=== PATIENT | male | born 1975 | race Native Hawaiian/Other Pacific Islander ===

== ENCOUNTER 2017-12-06 15:56 | Emergency (ER) | payer OTHER ==
[~2017-12-06] VITALS: Ht 180.3 cm; Wt 86.2 kg
[2017-12-06 16:20] VITALS: TEMP 98.1
[2017-12-06 17:48] VITALS: BP 140/87
== END 2017-12-06 17:49 | disposition home or self-care (01) ==
LOC: ED 15:56
DX: S16.1XXA Strain of muscle, fascia and tendon at neck level, initial encounter (principal); S20.222A Contusion of left back wall of thorax, initial encounter; S20.221A Contusion of right back wall of thorax, initial encounter; S30.0XXA Contusion of lower back and pelvis, initial encounter; M47.892 Other spondylosis, cervical region; V89.2XXA Person injured in unspecified motor-vehicle accident, traffic, initial encounter
CPT/HCPCS: 96372; 99283; J1885; J2360

== ENCOUNTER 2018-01-29 14:30 | Emergency (ER) | payer OTHER ==
[~2018-01-29] VITALS: Ht 180.3 cm; Wt 93.0 kg
[2018-01-29 15:11] LABS: PLATELET COUNT 271 K/uL (142-355)
[2018-01-29 15:55] VITALS: BP 112/62; TEMP 97.8
== END 2018-01-29 15:55 ==
LOC: ED 14:30
PROVIDERS: Family Medicine
DX: R07.89 Other chest pain (principal); R06.02 Shortness of breath
CPT/HCPCS: 36415; 80053; 84484; 85027; 85379; 93005; 99283

== ENCOUNTER 2018-07-29 15:52 | Emergency (ER) | payer OTHER ==
[~2018-07-29] VITALS: Ht 180.3 cm; Wt 97.5 kg
[2018-07-29 16:00] VITALS: TEMP 98.1
[2018-07-29 17:40] VITALS: BP 112/68
== END 2018-07-29 17:40 | disposition home or self-care (01) ==
LOC: ED 15:52
DX: S60.221A Contusion of right hand, initial encounter (principal); W22.8XXA Striking against or struck by other objects, initial encounter; Y93.89 Activity, other specified; Y92.89 Other specified places as the place of occurrence of the external cause; Y99.8 Other external cause status
CPT/HCPCS: 99282

== ENCOUNTER 2019-11-26 13:55 | Emergency (ER) | payer OTHER ==
[~2019-11-26] VITALS: Ht 180.3 cm; Wt 97.5 kg
[2019-11-26 14:06] VITALS: TEMP 98.8
[2019-11-26 14:41] VITALS: BP 128/88
== END 2019-11-26 14:42 | disposition home or self-care (01) ==
LOC: ED 13:55
DX: T20.12XA Burn of first degree of lip(s), initial encounter (principal); T22.10XA Burn of first degree of shoulder and upper limb, except wrist and hand, unspecified site, initial encounter; B00.9 Herpesviral infection, unspecified
CPT/HCPCS: 99282

== ENCOUNTER 2020-07-23 19:48 | Emergency (ER) | payer OTHER ==
[~2020-07-23] VITALS: Ht 180.3 cm; Wt 99.8 kg
[2020-07-23 20:10] VITALS: BP 128/85; TEMP 98.3
== END 2020-07-23 21:48 | disposition home or self-care (01) ==
LOC: ED 19:48
DX: S69.81XA Other specified injuries of right wrist, hand and finger(s), initial encounter (principal); Y04.2XXA Assault by strike against or bumped into by another person, initial encounter; Y92.89 Other specified places as the place of occurrence of the external cause
CPT/HCPCS: 96372; 99283; J1885

== ENCOUNTER 2023-04-03 20:08 | Emergency (ER) | payer OTHER ==
[~2023-04-03] VITALS: Ht 180.3 cm; Wt 111.1 kg
[2023-04-03 21:37] VITALS: BP 130/76; TEMP 98
== END 2023-04-03 21:37 | disposition home or self-care (01) ==
LOC: ED 20:08
PROC: 0HQKXZZ Repair Right Lower Leg Skin, External Approach (ICD-10-PCS; principal; 2023-04-03)
DX: S81.811A Laceration without foreign body, right lower leg, initial encounter (principal); W17.89XA Other fall from one level to another, initial encounter; F17.210 Nicotine dependence, cigarettes, uncomplicated
CPT/HCPCS: 90715; 99283; J2001